=== PATIENT | female | born 1940 | race African-American/Black ===

== ENCOUNTER 2020-12-09 10:03 | Emergency (ER) | payer MEDICARE ==
--- NOTE | 2020-12-09 10:34 | Event Note ---
ED Screening Note Date of service: 12/09/20 Time: 10:33 ED Screening Note: Patient complains of shortness of breath x2 days Also complains of bilateral leg pain and hip pain-has chronic pain Patient speaks [place] This initial assessment/diagnostic orders/clinical plan/treatment(s) is/are miles bject to change based on patients health status, clinical progression and re- assessment by fellow clinical providers in the ED. Further treatment and workup at subsequent clinical providers discretion. Patient/guardian urged not to elope from the ED as their condition may be serious if not clinically assessed and managed. Initial orders include: Labs EKG Chest x-ray
[2020-12-09] MEDS ORDERED: ONDANSETRON 4 MG/2 ML INJ IV ONE (11:14)
[2020-12-09] MEDS ORDERED: SODIUM CHLORIDE 0.9% 1000 ML 1,000 ML IV ONE (11:14)
[2020-12-09] MEDS ORDERED: MORPHINE 4 MG/1 ML INJ IV ONE (11:14)
--- NOTE | 2020-12-09 11:22 | Emergency Department Report ---
ED General Adult HPI - General Chief complaint: Dyspnea/Respdistress Stated complaint: CHRONIC PAIN Time Seen by Provider: 12/09/20 10:33 Source: family, EMS Mode of arrival: Wheelchair Limitations: Language Barrier, Physical Limitation - History of Present Illness Initial comments: Patient is 79 years old [place] female brought to the emergency room via EMS from home for evaluation of shortness of breath and generalized body pain. Patient had history of a stroke. I reviewed patient previous history in the hospital patient was admitted to the ICU last year for acute respiratory failure secondary to pneumonia most likely aspiration. Patient does not speak Faroese translation by nurse IV. Patient is complaining of shortness of breath for the last 2 days and generalized body ache. Patient family stated that she does have history of chronic back pain and leg pain secondary to arthritis. Patient family denied any fever or chills. No nausea or vomiting or decreased appetite. Patient also denied any chest pain, abdominal pain, headaches, focal weakness numbness or tingling sensation. - Related Data Previous Rx's Medication Instructions Recorded Last Taken Type Famotidine [Pepcid] 20 mg PO QDAY #30 tablet 07/24/20 Unknown Rx Lipase/Protease/Amylase [Pancreaze 1 each FEEDTUBE PRN PRN 30 Days 07/24/[address] 10,500 Unit] capsule Metoprolol [Lopressor TAB] 25 mg PO BID #60 tablet 07/24/20 Unknown Rx Simple Syrup 15 ml FEEDTUBE PRN PRN 30 Days 07/24/20 Unknown Rx oral.liqd Simple Syrup 30 ml FEEDTUBE PRN PRN 30 Days 07/24/20 Unknown Rx oral.liqd Sodium Bicarbonate 325 mg FEEDTUBE PRN PRN 30 Days 07/24/20 Unknown Rx tablet cloNIDine [Catapres] 0.1 mg PO Q12HR #60 tablet 07/24/20 Unknown Rx Allergies Allergy/AdvReac Type Severity Reaction Status Date / Time No Known Allergies Allergy Verified 12/09/20 10:35 ED Review of Systems ROS: Stated complaint: CHRONIC PAIN Other details as noted in HPI Comment: All other systems reviewed and negative Constitutional: denies: chills, fever Respiratory: shortness of breath. denies: cough, SOB with exertion, SOB at rest, wheezing Cardiovascular: denies: chest pain, palpitations Gastrointestinal: denies: abdominal pain, nausea, vomiting Musculoskeletal: back pain, arthralgia, myalgia Neurological: denies: headache, weakness, numbness, paresthesias, confusion ED Past Medical Hx - Past Medical History Hx HIV: No - Social History Smoking Status: Never Smoker - Medications Home Medications: Home Medications Medication Instructions Recorded Confirmed Last Taken Type Famotidine [Pepcid] 20 mg PO QDAY #30 tablet 07/24/20 Unknown Rx Lipase/Protease/Amylase [Pancreaze 1 each FEEDTUBE PRN PRN 30 Days 07/24/20 Unknown Rx 10,500 Unit] capsule Metoprolol [Lopressor TAB] 25 mg PO BID #60 tablet 07/24/20 Unknown Rx Simple Syrup 15 ml FEEDTUBE PRN PRN 30 Days 07/24/20 Unknown Rx oral.liqd Simple Syrup 30 ml FEEDTUBE PRN PRN 30 Days 07/24/20 Unknown Rx oral.liqd Sodium Bicarbonate 325 mg FEEDTUBE PRN PRN 30 Days 07/24/20 Unknown Rx tablet cloNIDine [Catapres] 0.1 mg PO Q12HR #60 tablet 07/24/20 Unknown Rx ED Physical Exam - General Limitations: Language Barrier, Physical Limitation General appearance: alert, in no apparent distress - Head Head exam: Present: atraumatic, normocephalic, normal inspection - Eye Eye exam: Present: normal appearance, PERRL - ENT ENT exam: Present: normal exam, normal orophraynx, mucous membranes moist - Neck Neck exam: Present: normal inspection, full ROM. Absent: tenderness, meningismus - Respiratory Respiratory exam: Present: normal lung sounds bilaterally - Cardiovascular Cardiovascular Exam: Present: regular rate, normal rhythm, normal heart sounds - GI/Abdominal GI/Abdominal exam: Present: soft, normal bowel sounds. Absent: distended, tenderness, guarding, rebound, rigid, organomegaly, mass, bruit, pulsatile mass, hernia - Extremities Exam Extremities exam: Present: normal inspection, full ROM, normal capillary refill. Absent: tenderness, pedal edema, calf tenderness - Back Exam Back exam: Present: normal inspection, full ROM. Absent: CVA tenderness (R), CVA tenderness (L) - Neurological Exam Neurological exam: Present: alert, oriented X3 - Psychiatric Psychiatric exam: Present: normal mood - Skin Skin exam: Present: warm, intact, normal color ED Course Vital Signs 12/09/20 12/09/20 11:07 11:15 Pulse Rate 88 87 Respiratory 16 18 Rate Blood Pressure 170/87 O2 Sat by Pulse 98 Oximetry ED Medical Decision Making - Lab Data Result diagrams: 12/09/20 11:43 12/09/20 11:43 - Radiology Data Radiology results: report reviewed - Medical Decision Making Patient is 79 years old [place] female brought to the emergency room via EMS from home for evaluation of shortness of breath and generalized body pain. Patient had history of a stroke. I reviewed patient previous history in the hospital patient was admitted to the ICU last year for acute respiratory failure secondary to pneumonia most likely aspiration. Patient does not speak Faroese translation by nurse IV. Patient is complaining of shortness of breath for the last 2 days and generalized body ache. Patient family stated that she does have history of chronic back pain and leg pain secondary to arthritis. Patient family denied any fever or chills. No nausea or vomiting or decreased appetite. Patient also denied any chest pain, abdominal pain, headaches, focal weakness numbness or tingling sensation. Patient received morphine and Zofran. Patient is quiet now and not complaining of pain. Chest x-ray is unremarkable. Labs reviewed and showed elevated Bnp. Patient started on Lasix and advised to follow-up with primary doctor in the next 2 to 3 days and to return to the ER if she develop any new symptoms. Critical care attestation.: If time is entered above; I have spent that time in minutes in the direct care of this critically ill patient, excluding procedure time. ED Disposition Clinical Impression: Congestive heart failure, Acute exacerbation of chronic low back pain Disposition: TO HOME OR SELFCARE Is pt being admited?: No Condition: Stable Instructions: Chronic Back Pain, [id number], Heart Failure Exacerbation Referrals: PRIMARY CARE, [Primary Care Provider] - 3-5 Days
--- NOTE | 2020-12-09 11:56 | XRay Report ---
CHEST 1 VIEW INDICATION: shortness of breath COMPARISON: 07/19/2020 FINDINGS: Support devices: None Heart: Moderately enlarged, increased since July. Lungs/Pleura: No acute pulmonary or pleural findings. IMPRESSION: 1. Moderate cardiomegaly, new since July. No pulmonary edema or acute pulmonary disease. Signer Name: Rodney Douglas MD Signed: 12/09/2020 11:51 AM Workstation Name: [id number]
[2020-12-09] MEDS ORDERED: MORPHINE 2 MG/1 ML INJ ONE (12:03)
[2020-12-09 12:12] LABS: Basophils % (Auto) 0.4 % (0.0-1.8); Eosinophils % (Auto) 0.7 % (0.0-4.3); Hematocrit 31.5 % (30.3-42.9); Hemoglobin 10.4 gm/dl (10.1-14.3); Lymphocytes # (Auto) 0.8 K/mm3 (1.2-5.4); Lymphocytes % (Auto) 15.8 % (13.4-35.0); Mean Corpuscular HGB Conc 33 % (30-34); Mean Corpuscular Volume 95 fl (79-97); Monocytes # (Auto) 0.5 K/mm3 (0.0-0.8); Monocytes % (Auto) 9.9 % (0.0-7.3); Platelet Count 285 K/mm3 (140-440); Red Blood Count 3.32 M/mm3 (3.65-5.03); Red Cell Distribution Width 13.7 % (13.2-15.2)
[2020-12-09 12:15] LABS: Bilirubin,Urine NEG (Negative); Blood,Urine NEG (Negative); Color,Urine Straw (Yellow); Protein,Urine <15 mg/dL mg/dL (Negative); Urobilinogen,Urine < 2.0 mg/dL (<2.0); WBC,Urine < 1.0 /HPF (0.0-6.0)
[2020-12-09] MEDS ORDERED: MORPHINE 2 MG/1 ML INJ IV ONE (12:16)
[2020-12-09 12:32] LABS: Albumin 3.4 g/dL (3.9-5); Blood Urea Nitrogen 9 mg/dL (7-17); Hemolysis Index 3
[2020-12-09 12:46] LABS: Alanine Aminotransferase < 5 units/L (7-56); BUN/Creatinine Ratio 15
[2020-12-09 17:07] VITALS: BP 165/98
== END 2020-12-09 16:00 | disposition home or self-care (01) ==
LOC: ED 10:03
DX: I50.9 Heart failure, unspecified (principal); M54.5 Low back pain; Z79.899 Other long term (current) drug therapy
CPT/HCPCS: 36415; 71045; 80053; 81001; 83880; 84484; 85025; 96361; 96374; 96375; 99284; J2270; J2405; J7030